=== PATIENT | female | born 1945 | race Asian ===

== ENCOUNTER 2023-07-31 05:26 | Inpatient (IN) | payer MEDICAID, MEDICARE ==
[~2023-07-31] VITALS: Ht 157.5 cm; Wt 74.4 kg
[2023-07-31 05:38] VITALS: BP_SYST 117; PULSE 63; RESP 18; TEMP 96.5; O2SAT 94
[2023-07-31 07:17] LABS: BASOPHILS % (AUTO) 0.7 % (0.0-2.0); EOSINOPHILS # (AUTO) 0.1 K/uL (0.0-0.4); EOSINOPHILS % (AUTO) 1.1 % (0.0-4.0); HEMATOCRIT 31.3 % (36-48); HEMOGLOBIN 9.7 g/dL (12.0-16.0); LYMPHOCYTES # (AUTO) 0.7 K/uL (1.0-5.5); LYMPHOCYTES % (AUTO) 11.5 % (20.5-51.5); MEAN CORPUSCULAR HEMOGLOBIN 27 pg (27-31); MEAN CORPUSCULAR HGB CONC 31 % (32-36); MEAN CORPUSCULAR VOLUME 88 fL (79.0-98.0); MONOCYTES # (AUTO) 0.5 K/uL (0.0-1.0); MONOCYTES % (AUTO) 8.3 % (1.7-9.3); NEUTROPHILS # (AUTO) 4.9 K/uL (1.8-7.7); NEUTROPHILS % (AUTO) 78.4 % (40.0-70.0); PLATELET COUNT (AUTO) 201 K/uL (130-430); RED BLOOD CELL COUNT(AUTO) 3.54 MIL/uL (4.2-6.2); RED CELL DISTRIBUTION WIDTH 20.3 % (9.0-15.0); WHITE BLOOD COUNT (AUTO) 6.2 K/uL (4.8-10.8)
[2023-07-31 07:54] LABS: INR 1.4 (0.8-1.2); PROTHROMBIN TIME 14.7 SECS (9.5-12.5)
[2023-07-31 08:10] LABS: ALANINE AMINOTRANSFERASE 10 U/L (12-78); ALBUMIN 2.8 g/dL (3.4-4.8); ANION GAP 10 (5-15); ASPARTATE AMINOTRANSFERASE 13 U/L (10-37); BILIRUBIN,DIRECT 0.7 mg/dL (0.0-0.3); CALCIUM 9.3 mg/dL (8.4-11.0); CARBON DIOXIDE 26 mmol/L (23-29); CHLORIDE 103 mmol/L (98-107); CREATININE 1.76 mg/dL (0.55-1.30); GLUCOSE 107 mg/dL (74-106); POTASSIUM 3.3 mmol/L (3.5-5.1); SODIUM SERUM 139 mmol/L (136-145); TOTAL BILIRUBIN 1.5 mg/dL (0.0-1.0); TOTAL PROTEIN, SERUM 7.7 g/dL (6.4-8.3); UREA NITROGEN, BLOOD 29 mg/dL (8-21)
[2023-07-31] MEDS ORDERED: DOCUSATE SODIUM 100 MG CAPSULE PO PRN (08:15)
[2023-07-31] MEDS ORDERED: ONDANSETRON HCL 4 MG/2 ML VIAL IVP PRN (08:15)
[2023-07-31] MEDS ORDERED: ACETAMINOPHEN 500 MG TABLET PO PRN ×2 (08:15→10:30)
[2023-07-31] MEDS ORDERED: ZOLPIDEM TARTRATE 5 MG TABLET PO PRN (08:15)
[2023-07-31] MEDS ORDERED: MAGNESIUM SULFATE 50 ML IV PRN (08:15)
[2023-07-31] MEDS ORDERED: LORazepam 2 MG/ML VIAL IVP PRN (08:15)
[2023-07-31] MEDS ORDERED: MORPHINE 2 MG/ML INJ. SYRINGE IVP PRN ×2 (08:15)
[2023-07-31] MEDS ORDERED: MUPIROCIN 2% TOPICAL OINTMENT 22 GM NS PRN (08:15)
[2023-07-31] MEDS: ASPIRIN 81 MG TAB.CHEW PO ONE (08:28)
[2023-07-31] MEDS: NITROGLYCERIN 1 INCH (GM) OINT. TP ONE (08:29)
[2023-07-31] MEDS: FUROSEMIDE 40 MG/4 ML VIAL IVP SCH (09:00)
[2023-07-31] MEDS: FUROSEMIDE 20 MG/2 ML VIAL IVP ONE (09:15)
[2023-07-31] MEDS: HEPARIN SODIUM,PORCINE 5,000 UNITS/ML VIAL SUBCUT SCH (09:20)
[2023-07-31 09:22] LABS: BILIRUBIN,URINE NEGATIVE (NEGATIVE); BLOOD, URINE 3+ (NEGATIVE); COLOR,URINE YELLOW (YELLOW); GLUCOSE,URINE NEGATIVE (NEGATIVE); KETONES,URINE NEGATIVE (NEGATIVE); LEUKOCYTE ESTERASE ,URINE 3+ (NEGATIVE); NITRITE, URINE NEGATIVE (NEGATIVE); PROTEIN URINE 1+ (NEGATIVE); UROBILINOGEN,URINE 0.2 (0.2-1.0)
[2023-07-31 09:31] LABS: CLARITY/URINE SLIGHTLY HAZY (CLEAR)
[2023-07-31 09:59] LABS: BACTERIA,URINE MANY /HPF (None Seen); WBC,URINE 20-50 /HPF (0-3)
[2023-07-31 10:01] LABS: MUCUS,URINE 1+ /LPF (None Seen); OTHER CASTS, URINE WBC CASTS 1+ /LPF (None Seen)
[2023-07-31] MEDS: POTASSIUM CHLORIDE 20 MEQ TABLET.ER PO PRN (13:50)
[2023-07-31] MEDS ORDERED: IPRATROPIUM/ALBUTEROL SULFATE 3 ML AMPUL.NEB (DUONEB) INH PRN (14:30)
[2023-07-31 14:55] VITALS: PULSE 64; O2SAT 97
[2023-07-31] MEDS ORDERED: APIX5TAB PO (16:03)
[2023-07-31] MEDS ORDERED: DONE10TA44 PO (16:03)
[2023-07-31] MEDS ORDERED: FURO40TA5 PO (16:03)
[2023-07-31] MEDS ORDERED: ROSU10TA29 PO (16:03)
[2023-07-31] MEDS ORDERED: ICOS1CAP2 PO (16:03)
[2023-07-31] MEDS ORDERED: cefTRIAXone 1 GM VIAL ONE (19:33)
[2023-07-31] MEDS ORDERED: FUROSEMIDE 40 MG/4 ML VIAL ONE (19:34)
[2023-07-31] MEDS: FUROSEMIDE 40 MG/4 ML VIAL IVP ONE (19:39)
[2023-07-31] MEDS: cefTRIAXone 1 GM in D5W 50 ML IV ONE (19:39)
[2023-07-31 21:45] VITALS: BP_SYST 97; PULSE 45; RESP 20; TEMP 98.5
[2023-07-31] MEDS: THEOPHYLLINE ANHYDROUS 80 MG/15 ML UDC PO SCH (22:51)
[2023-07-31] MEDS: FUROSEMIDE 100 MG in D5W 90 ML IV SCH (22:52)
[2023-07-31] MEDS: PIPERACILLIN/TAZOBACTAM 2.25 GM in D5W 50 ML IV SCH (23:09)
[2023-08-01] VITALS (9 sets, daily range): BP systolic 97–127; PULSE 48–63; RESP 16–20; TEMP 96.6–97.9; O2SAT 95–100
[2023-08-01 03:46] LABS: BILIRUBIN,URINE NEGATIVE (NEGATIVE); BLOOD, URINE 3+ (NEGATIVE); COLOR,URINE YELLOW (YELLOW); GLUCOSE,URINE NEGATIVE (NEGATIVE); KETONES,URINE NEGATIVE (NEGATIVE); LEUKOCYTE ESTERASE ,URINE 3+ (NEGATIVE); NITRITE, URINE POSITIVE (NEGATIVE); PROTEIN URINE TRACE (NEGATIVE); UROBILINOGEN,URINE 0.2 (0.2-1.0)
[2023-08-01 03:59] LABS: CLARITY/URINE SLIGHTLY CLOUDY (CLEAR)
[2023-08-01 04:00] LABS: BACTERIA,URINE MODERATE /HPF (None Seen); RBC,URINE 20-50 /HPF (0-3); WBC,URINE 50-80 /HPF (0-3)
[2023-08-01 04:33] LABS: EOSINOPHILS # (AUTO) 0.1 K/uL (0.0-0.4); EOSINOPHILS % (AUTO) 2.4 % (0.0-4.0); HEMATOCRIT 30.7 % (36-48); HEMOGLOBIN 9.9 g/dL (12.0-16.0); LYMPHOCYTES # (AUTO) 0.7 K/uL (1.0-5.5); LYMPHOCYTES % (AUTO) 14.6 % (20.5-51.5); MEAN CORPUSCULAR HEMOGLOBIN 28 pg (27-31); MEAN CORPUSCULAR HGB CONC 32 % (32-36); MEAN CORPUSCULAR VOLUME 87 fL (79.0-98.0); MONOCYTES # (AUTO) 0.4 K/uL (0.0-1.0); MONOCYTES % (AUTO) 8.5 % (1.7-9.3); NEUTROPHILS # (AUTO) 3.4 K/uL (1.8-7.7); NEUTROPHILS % (AUTO) 73.5 % (40.0-70.0); PLATELET COUNT (AUTO) 194 K/uL (130-430); RED BLOOD CELL COUNT(AUTO) 3.52 MIL/uL (4.2-6.2); RED CELL DISTRIBUTION WIDTH 19.6 % (9.0-15.0); WHITE BLOOD COUNT (AUTO) 4.6 K/uL (4.8-10.8)
[2023-08-01 04:41] LABS: INR 1.3 (0.8-1.2); PROTHROMBIN TIME 13.5 SECS (9.5-12.5)
[2023-08-01 05:08] LABS: ALANINE AMINOTRANSFERASE 16 U/L (12-78); ALBUMIN 2.8 g/dL (3.4-4.8); ANION GAP 9 (5-15); ASPARTATE AMINOTRANSFERASE 10 U/L (10-37); CALCIUM 9.1 mg/dL (8.4-11.0); CARBON DIOXIDE 28 mmol/L (23-29); CHLORIDE 103 mmol/L (98-107); CHOLESTEROL 74 mg/dL (<200); CREATININE 1.71 mg/dL (0.55-1.30); GLUCOSE 98 mg/dL (74-106); HDL CHOLESTEROL 27 mg/dL (>55); LIPASE 92 U/L (16-77); POTASSIUM 3.5 mmol/L (3.5-5.1); SODIUM SERUM 140 mmol/L (136-145); THYROID STIMULATING HORMONE 1.36 uIu/mL (0.34-4.82); TOTAL BILIRUBIN 1.6 mg/dL (0.0-1.0); TOTAL PROTEIN, SERUM 7.8 g/dL (6.4-8.3); TRIGLYCERIDES 69 mg/dL (30-150); UREA NITROGEN, BLOOD 27 mg/dL (8-21)
[2023-08-01] MEDS ORDERED: FUROSEMIDE 40 MG/4 ML VIAL IVP SCH (07:00)
[2023-08-01] MEDS: cefTRIAXone 1 GM in D5W 50 ML IV SCH (09:39)
[2023-08-02] VITALS (7 sets, daily range): BP systolic 98–130; PULSE 50–57; RESP 16–20; TEMP 97.1–98.4; O2SAT 95–100
[2023-08-02 04:38] LABS: BASOPHILS % (AUTO) 0.9 % (0.0-2.0); EOSINOPHILS # (AUTO) 0.1 K/uL (0.0-0.4); EOSINOPHILS % (AUTO) 1.6 % (0.0-4.0); HEMATOCRIT 29.4 % (36-48); HEMOGLOBIN 9.4 g/dL (12.0-16.0); LYMPHOCYTES # (AUTO) 0.7 K/uL (1.0-5.5); LYMPHOCYTES % (AUTO) 13.7 % (20.5-51.5); MEAN CORPUSCULAR HEMOGLOBIN 28 pg (27-31); MEAN CORPUSCULAR HGB CONC 32 % (32-36); MEAN CORPUSCULAR VOLUME 88 fL (79.0-98.0); MONOCYTES # (AUTO) 0.4 K/uL (0.0-1.0); MONOCYTES % (AUTO) 8.8 % (1.7-9.3); NEUTROPHILS # (AUTO) 3.7 K/uL (1.8-7.7); PLATELET COUNT (AUTO) 180 K/uL (130-430); RED BLOOD CELL COUNT(AUTO) 3.35 MIL/uL (4.2-6.2); RED CELL DISTRIBUTION WIDTH 19.7 % (9.0-15.0); WHITE BLOOD COUNT (AUTO) 4.9 K/uL (4.8-10.8)
[2023-08-02 04:55] LABS: ALANINE AMINOTRANSFERASE 4 U/L (12-78); ALBUMIN 2.7 g/dL (3.4-4.8); ANION GAP 10 (5-15); ASPARTATE AMINOTRANSFERASE 6 U/L (10-37); CALCIUM 8.9 mg/dL (8.4-11.0); CARBON DIOXIDE 28 mmol/L (23-29); CHLORIDE 103 mmol/L (98-107); CREATININE 1.61 mg/dL (0.55-1.30); GLUCOSE 97 mg/dL (74-106); SODIUM SERUM 141 mmol/L (136-145); TOTAL BILIRUBIN 1.5 mg/dL (0.0-1.0); TOTAL PROTEIN, SERUM 7.6 g/dL (6.4-8.3); UREA NITROGEN, BLOOD 24 mg/dL (8-21)
[2023-08-02] MEDS ORDERED: FURO-149 PO (08:11)
[2023-08-02] MEDS ORDERED: POTA-197 PO (08:11)
[2023-08-02] MEDS ORDERED: LEVO-62 PO (08:11)
[2023-08-02] MEDS ORDERED: THEOPHYLLINE ANHYDROUS 200 MG CAP.ER.24H PO SCH (09:15)
[2023-08-02] MEDS: THEOPHYLLINE ANHYDROUS 80 MG/15 ML UDC PO SCH (11:31)
[2023-08-03] MEDS ORDERED: NITR-85 PO (20:21)
== END 2023-08-02 18:15 | disposition home health service (06) | DRG 194 ==
LOC: SED 05:26 → STU 08:13
PROVIDERS: ADMIT General Practice; ATTEND General Practice
DX: I13.0 Hypertensive heart and chronic kidney disease with heart failure and stage 1 through stage 4 chronic kidney disease, or unspecified chronic kidney disease (principal); N17.0 Acute kidney failure with tubular necrosis; J69.0 Pneumonitis due to inhalation of food and vomit; I95.9 Hypotension, unspecified; G30.9 Alzheimer's disease, unspecified; Z79.01 Long term (current) use of anticoagulants; D63.8 Anemia in other chronic diseases classified elsewhere; F02.80 Dementia in other diseases classified elsewhere, unspecified severity, without behavioral disturbance, psychotic disturbance, mood disturbance, and anxiety; I50.43 Acute on chronic combined systolic (congestive) and diastolic (congestive) heart failure; E66.01 Morbid (severe) obesity due to excess calories; I48.20 Chronic atrial fibrillation, unspecified; I25.10 Atherosclerotic heart disease of native coronary artery without angina pectoris; N18.9 Chronic kidney disease, unspecified; N39.0 Urinary tract infection, site not specified; Z88.8 Allergy status to other drugs, medicaments and biological substances; Z68.30 Body mass index [BMI] 30.0-30.9, adult; E66.9 Obesity, unspecified
CPT/HCPCS: 36415; 71045; 76770; 80048; 80053; 80061; 80076; 81000; 81001; 81015; 83037; 83690; 83735; 83880; 84443; 84484; 85025; 85610; 85730; 87086; 87186; 93005; 93306; 93970; 94070; 94664; 94760; 96365; 96375; 97116-GP; 97530-GP; 99291; G0378; J0696; J1644; J1940; J2543; J7060